=== PATIENT | female | born 1975 | race Caucasian/White ===

== ENCOUNTER 2023-03-17 11:06 | Emergency (ER) | payer BC ==
[~2023-03-17] VITALS: Ht 165.1 cm; Wt 63.5 kg
[2023-03-17 11:30] VITALS: BP_SYST 124; PULSE 91; RESP 18; TEMP 98.1; O2SAT 100
[2023-03-17 12:39] LABS: BILIRUBIN,URINE NEGATIVE (NEGATIVE); BLOOD, URINE TRACE (NEGATIVE); CLARITY/URINE CLEAR (CLEAR); COLOR,URINE YELLOW (YELLOW); GLUCOSE,URINE NEGATIVE (NEGATIVE); KETONES,URINE 3+ (NEGATIVE); LEUKOCYTE ESTERASE ,URINE NEGATIVE (NEGATIVE); NITRITE, URINE NEGATIVE (NEGATIVE); PH,URINE 5.5 (5.0-8.0); PROTEIN URINE NEGATIVE (NEGATIVE)
[2023-03-17 12:40] LABS: UROBILINOGEN,URINE 0.2 (0.2-1.0)
[2023-03-17 12:41] LABS: BACTERIA,URINE FEW /HPF (None Seen); MUCUS,URINE 1+ /LPF (None Seen); RBC,URINE 0-3 /HPF (0-3); WBC,URINE 0-3 /HPF (0-3)
[2023-03-17] MEDS ORDERED: KETOROLAC TROMETHAMINE 60 MG/2 ML VIAL IM ONE (13:00)
[2023-03-17] MEDS ORDERED: NAPR-690 PO (13:29)
[2023-03-17] MEDS ORDERED: NEU300 PO (13:38)
[2023-03-17 13:39] VITALS: BP_SYST 143; PULSE 74; RESP 16; TEMP 97.8; O2SAT 100
== END 2023-03-17 13:36 | disposition home or self-care (01) ==
LOC: SED 11:06
DX: M54.32 Sciatica, left side (principal); R10.32 Left lower quadrant pain; M54.50 Low back pain, unspecified; M79.662 Pain in left lower leg; Z79.899 Other long term (current) drug therapy
CPT/HCPCS: 99283; 81000; 81025; 96372; J1885